=== PATIENT | female | born 1955 | race Caucasian/White ===

== ENCOUNTER → 2017-10-08 | Outpatient (CLI) | payer BC ==
[~2017-10-08] MED LIST: ASPI81TA94 PO; CHOL200022 PO; FEXO-72 PO; LEVO200T50 PO; MULT1TAB64 PO; RALO60TA PO
--- NOTE | 2017-10-08 16:33 | RADIOLOGY IMAGING REPORT ---
FACILITY: [facility] PATIENT NAME: JOSE ALBERTO LEWIS : [id number] MR: [id number] V: [id number] EXAM DATE: [id number] ORDERING PHYSICIAN: LESLIE WOODWARD TECHNOLOGIST: Sophie Roger PROCEDURE:BILATERAL DIGITAL SCREENING MAMMOGRAM WITH CAD ASSISTED INTERPRETATION & 3D TOMOSYNTHESIS COMPARISON:Prior mammograms 09/28/16, 09/22/15, 08/25/14, 02/03/14. INDICATIONS:screening FINDINGS: Moderately dense heterogeneous fibroglandular tissue is seen throughout the breasts. Biopsy clips are seen in the upper outer quadrant of the Left breast. The parenchymal pattern has remained stable allowing for difference in mammographic technique & patient positioning. There is no evidence of malignant appearing mass, malignant appearing calcifications or other secondary sign of malignancy in either breast. DIAGNOSTIC CATEGORY 2--BENIGN FINDING. RECOMMENDATIONS: ROUTINE MAMMOGRAM AND CLINICAL EVALUATION. IMPRESSION: BIRADS 2: Benign finding. No significant abnormality is seen. Dictated by: Adilene Curiel M.D. on 10/08/2017 at 11:10 Transcribed by: CARL on 10/08/2017 at 11:27 Approved by: Adilene Curiel M.D. on 10/08/2017 at 16:32 [facility]
== END ==
LOC: MAMO 02:03
PROVIDERS: ATTEND Nurse Practitioner Family
DX: Z12.31 Encounter for screening mammogram for malignant neoplasm of breast (principal)
CPT/HCPCS: 77063; 77067

== ENCOUNTER → 2018-08-07 | Outpatient (CLI) | payer BC ==
[~2018-08-07] MED LIST changes: +CHOL200018 PO; -CHOL200022 PO
--- NOTE | 2018-08-07 10:11 | RADIOLOGY IMAGING REPORT ---
[place] [facility] [place] NAME: Cecilia Ledesma : 1955 MR: [id number] V: [id number] EXAM DATE: ORDERING PHYSICIAN: LESLIE WOODWARD TECHNOLOGIST: Location: [facility] - [place] Patient: Cecilia Ledesma : 1955 Visit/Account:[id number] Date of Sevice: 08/07/2018 DEXA Scan Clinical history: Postmenopausal. Comparison: None available. LUMBAR SPINE: The bone mineral density (BMD) measured from L1-L4 correlates with a Z-score 1.1 and a T-score of 0.5 which is Normal as defined by the World Health Organization. The corresponding risk of fracture in the lumbar spine is Not increased compared with a young adult reference population. HIP: Bone mineral density (BMD) measured in the Left total hip region correlates with a Z-score -0.6 and a T-score of -1 which is Normal as defined by the World Health Organization. The corresponding risk o f fracture in the hip is 2 times increased compared with a young adult reference population. T scor e left femoral neck -1 Bone mineral density (BMD) measured in the Femoral Neck region measures 0.903 g/cm2. Impression: 1. Lumbar spine: Normal. 2. Left Hip: Normal. 3. Femoral Neck: Bone Mineral Density is 0.903 g/cm2 The next DEXA scan of this patient should include the following sites: L1-L4 and the left hip. FRAX? WHO Fracture Risk Assessment Tool link: <http://www.shef.ac.uk/FRAX/tool.jsp?locationValue=9> PLEASE NOTE: 1) The World Health Organization defines low BMD as follows: T-score Normal > -1 Osteopenia < -1 and > -2.5 Osteoporosis < -2.5 without fractures Established osteoporosis < -2.5 with fractures 2) In general, you may wish to consider: Diagnosis Treatment Follow-up DEXA Normal BMD Prevention 2-3 years Osteopenia Prevention/therapy 1-2 years Osteoporosis Therapy Yearly 3) Fracture risk estimated from the T-score is more accurate for vertebral fractures (often spontane ous) than for hip fractures. . Report Dictated By: Adilene Curiel MD at 08/07/2018 10:06 AM Report E-Signed By: Adilene Curiel MD at 08/07/2018 10:07 AM LOANN:REGGIE
== END ==
LOC: RAD 01:46
PROVIDERS: ATTEND Nurse Practitioner Family
DX: Z78.0 Asymptomatic menopausal state (principal)
CPT/HCPCS: 77080